=== PATIENT | male | born 1985 | race Asian ===

== ENCOUNTER 2017-06-21 15:04 | Emergency (ER) | payer BC ==
[~2017-06-21] VITALS: Ht 175.3 cm; Wt 75.0 kg
[~2017-06-21 15:04] MED LIST: ATIVAN 0.50.5 MG/TAB PO
[2017-06-21 15:06] VITALS: TEMP 97.9
[2017-06-21 15:55] LABS: BASO % 0.2 % (0.0-2.0); EOS # 0.1 (0.0-0.7); EOS % 0.9 % (0-4.0); GRAN # 6.6 (1.4-6.5); GRAN % 71.2 % (42.2-75.2); HEMATOCRIT 43.3 % (42.0-52.0); LYMPH # 2.1 (1.2-3.4); LYMPH % 22.3 % (20.0-51.0); MEAN CELL VOLUME 87 fl (80.0-100.0); MEAN CORPUSCULAR HEMOGLOBIN 30 pg (27.0-31.0); MEAN CORPUSCULAR HGB CONC 35 g/dl (33.0-37.0); MEAN PLATELET VOLUME 9.5 fl (7.4-10.4); MONO # 0.5 (0.1-0.6); MONO % 5.1 % (1.7-9.3); PLATELET COUNT 262 K/mm3 (130-400); RED BLOOD COUNT 4.96 M/mm3 (4.20-5.60); REDCELL DISTRIBUTION WIDTH-CV 12.4 % (11.5-14.5); WHITE BLOOD COUNT 9.2 K/mm3 (4.8-10.8)
[2017-06-21 16:32] LABS: CALCIUM 9.8 mg/dL (8.4-10.2); CREATININE, serum 0.97 mg/dL (0.66-1.25); POTASSIUM 3.7 mmol/L (3.4-5.0)
[2017-06-21 16:41] LABS: PH 5 (5-8); SQUAMOUS EPITHELIAL 0-2 /hpf; URINE APPEARANCE Turbid; URINE BACTERIA None Seen /hpf; URINE BILIRUBIN Negative (NEGATIVE); URINE BLOOD 2+ (NEGATIVE); URINE COLOR Amber; URINE GLUCOSE Negative (NEGATIVE); URINE KETONE Trace (NEGATIVE); URINE UROBILINOGEN >=4.0 mg/dL (NEGATIVE); URINE WBC None Seen /hpf
[2017-06-21] MEDS ORDERED: PERCOCET 325 MG1 TA2 PO (16:47)
[2017-06-21] MEDS ORDERED: ZOFRAN ODT4 MG PO (16:47)
[2017-06-21 17:05] VITALS: BP 123/74; PULSE 82
== END 2017-06-21 17:10 | disposition home or self-care (01) ==
LOC: COL.ER 15:04
PROVIDERS: Nurse Practitioner
DX: N20.1 Calculus of ureter (principal); F41.9 Anxiety disorder, unspecified
CPT/HCPCS: J1170; J1885; J2405; J7030; Q9967